=== PATIENT | male | born 1965 | race Caucasian/White ===

== ENCOUNTER 2020-12-29 09:26 | Outpatient (REF) | payer OTHER, SELFPAY ==
[2020-12-29 11:07] LABS: MANUAL DIFF FLAG NO
[2020-12-29 11:10] LABS: Basophils Percent Auto 0.8 % (0-2); Eosinophils Absolute Auto 0.1 X10*3/uL (0.0-0.4); Eosinophils Percent Auto 2.3 % (0-4); Hematocrit 41.1 % (42-52); Hemoglobin 14.7 g/dl (14.0-18.0); Imm Gran Abs Auto 0.02 X10*3/uL (0.00-0.03); Imm Gran Pct Auto 0.4 % (0.0-0.4); Lymphocytes Absolute Auto 1.5 X10*3/uL (1.2-4.9); Lymphocytes Percent Auto 32.1 % (20-40); Mean Corpuscular HGB Conc 35.8 g/dl (31.0-36.0); Mean Corpuscular Hemoglobin 32.7 pg (27.0-33.0); Mean Corpuscular Volume 91.3 fL (80-98); Mean Platelet Volume 9.8 fL (9.4-12.4); Monocytes Absolute Auto 0.4 X10*3/uL (0.1-1.2); Monocytes Percent Auto 8.2 % (2-11); Neutrophils Absolute Auto 2.7 X10*3/uL (2.0-8.3); Neutrophils Percent Auto 56.2 % (45-73); Platelet Count 274 X10*3/uL (160-400); Red Cell Distribution Width 11.6 % (11.0-16.0); White Blood Count 4.8 X10*3/uL (4.8-10.8)
[2020-12-29 11:19] LABS: Estimated Average Glucose 88 mg/dL; Hemoglobin A1c % 4.7 %
[2020-12-29 12:07] LABS: Alanine Aminotransferase 27 U/L (0-40); Albumin Level 4.3 g/dL (3.5-5.0); Alkaline Phosphatase 58 U/L (39-117); Anion Gap 13 (12-20); Aspartate Amino Transferase 22 U/L (5-37); Bilirubin Total 0.8 mg/dL (0.0-1.0); Blood Urea Nitrogen 14 mg/dL (9-16); Calcium 9.6 mg/dL (8.4-10.2); Carbon Dioxide 24 mmol/L (22-29); Chloride 108 mmol/L (96-108); Cholesterol 190 mg/dL; Estimated Glomerular Filt Rate > 60; Glucose Fasting 101 mg/dL (60-99); HDL Cholesterol 51 mg/dL; LDL Cholesterol Calculated 122 mg/dl; Potassium 4.3 mmol/L (3.3-5.1); Sodium 141 mmol/L (135-145); Triglycerides 86 mg/dL
== END 2020-12-29 09:27 | disposition home or self-care (01) ==
LOC: HO.MANLDS 09:26
PROVIDERS: PCP Physician Assistant; Visit Provider Physician Assistant
DX: Z00.00 Encounter for general adult medical examination without abnormal findings (principal)
CPT/HCPCS: 36415; 80053; 80061; 83036; 85025

== ENCOUNTER 2022-01-04 09:39 | Outpatient (REF) | payer OTHER, SELFPAY ==
[2022-01-04 11:17] LABS: MANUAL DIFF FLAG NO
[2022-01-04 11:40] LABS: Basophils Absolute Auto 0.1 X10*3/uL (0.0-0.2); Basophils Percent Auto 0.9 % (0-2); Eosinophils Absolute Auto 0.1 X10*3/uL (0.0-0.4); Eosinophils Percent Auto 1.8 % (0-4); Hematocrit 43.7 % (42.0-52.0); Hemoglobin 15.5 g/dl (14.0-18.0); Imm Gran Abs Auto 0.03 X10*3/uL (0.00-0.03); Imm Gran Pct Auto 0.5 % (0.0-0.4); Lymphocytes Percent Auto 34.3 % (20-40); Mean Corpuscular HGB Conc 35.5 g/dl (31.0-36.0); Mean Corpuscular Hemoglobin 32.8 pg (27.0-33.0); Mean Corpuscular Volume 92.4 fL (80.0-98.0); Mean Platelet Volume 9.9 fL (9.4-12.4); Monocytes Absolute Auto 0.5 X10*3/uL (0.1-1.2); Monocytes Percent Auto 9.1 % (2-11); Neutrophils Absolute Auto 3.1 x10*3/uL (2.0-8.3); Neutrophils Percent Auto 53.4 % (45-73); Platelet Count 289 X10*3/uL (160-400); Red Blood Count 4.73 X10*6/uL (4.60-5.80); Red Cell Distribution Width 12.1 % (11.0-16.0); White Blood Count 5.7 X10*3/uL (4.8-10.8)
[2022-01-04 11:56] LABS: Alanine Aminotransferase 28 U/L (0-40); Albumin Level 4.6 g/dL (3.5-5.0); Alkaline Phosphatase 59 U/L (39-117); Anion Gap 16 (12-20); Aspartate Amino Transferase 22 U/L (5-37); Bilirubin Total 0.9 mg/dL (0.0-1.0); Blood Urea Nitrogen 15 mg/dL (9-16); Carbon Dioxide 28 mmol/L (22-29); Chloride 107 mmol/L (96-108); Cholesterol 214 mg/dL; Estimated Glomerular Filt Rate > 60; Glucose Random 113 mg/dL (60-115); HDL Cholesterol 60 mg/dL; LDL Cholesterol Calculated 140 mg/dl; Potassium 5.6 mmol/L (3.3-5.1); Sodium 145 mmol/L (135-145); Total Protein 7.5 g/dL (6.5-8.0); Triglycerides 71 mg/dL
[2022-01-04 12:23] LABS: Estimated Average Glucose 97 mg/dL
== END 2022-01-04 09:40 | disposition home or self-care (01) ==
LOC: HO.MANLDS 09:39
PROVIDERS: Visit Provider Physician Assistant
DX: Z00.00 Encounter for general adult medical examination without abnormal findings (principal)
CPT/HCPCS: 36415; 80053; 80061; 83036; 85025

== ENCOUNTER 2022-01-28 15:59 | Outpatient (REF) | payer OTHER, SELFPAY | END 2022-01-28 16:00 | disposition home or self-care (01) | LOC: HO.HOSX 15:59 | PROVIDERS: Visit Provider Physician Assistant | DX: Z13.89 Encounter for screening for other disorder (principal) ==

== ENCOUNTER 2022-01-29 | Outpatient (REF) | payer OTHER, SELFPAY ==
--- NOTE | ~2022-01-29 | XR_ITS ---
EXAMINATION: XR ANKLE, RIGHT CLINICAL INFORMATION: Right ankle pain COMPARISON: None TECHNIQUE: AP, lateral, and mortise views of the right ankle. FINDINGS: Moderate talocrural arthrosis. There is widening of the lateral tibiotalar joint space suggesting chronic lateral ligamentous insufficiency. No acute osseous abnormality. XR/XR ankle RT min 3V IMPRESSION: Moderate talocrural arthrosis. Relative widening of the lateral tibiotalar joint space suggests chronic lateral ligamentous insufficiency. No acute abnormality.
== END 2022-01-29 00:01 | disposition home or self-care (01) ==
LOC: HO.HOSX
PROVIDERS: Visit Provider Physician Assistant
DX: M25.571 Pain in right ankle and joints of right foot (principal)
CPT/HCPCS: 73610

== ENCOUNTER 2023-01-05 09:36 | Outpatient (REF) | payer OTHER, SELFPAY ==
[2023-01-05 13:26] LABS: MANUAL DIFF FLAG NO
[2023-01-05 13:42] LABS: Basophils Percent Auto 0.8 % (0-2); Eosinophils Absolute Auto 0.1 X10*3/uL (0.0-0.4); Eosinophils Percent Auto 2.3 % (0-4); Hematocrit 42.5 % (42.0-52.0); Hemoglobin 14.9 g/dl (14.0-18.0); Imm Gran Abs Auto 0.03 X10*3/uL (0.00-0.03); Imm Gran Pct Auto 0.6 % (0.0-0.4); Lymphocytes Absolute Auto 2.2 X10*3/uL (1.2-4.9); Lymphocytes Percent Auto 42.6 % (20-40); Mean Corpuscular HGB Conc 35.1 g/dl (31.0-36.0); Mean Corpuscular Hemoglobin 31.9 pg (27.0-33.0); Monocytes Absolute Auto 0.5 X10*3/uL (0.1-1.2); Monocytes Percent Auto 10.1 % (2-11); Neutrophils Absolute Auto 2.3 x10*3/uL (2.0-8.3); Neutrophils Percent Auto 43.6 % (45-73); Platelet Count 260 X10*3/uL (160-400); Red Blood Count 4.67 X10*6/uL (4.60-5.80); Red Cell Distribution Width 12.3 % (11.0-16.0); White Blood Count 5.2 X10*3/uL (4.8-10.8)
[2023-01-05 13:45] LABS: Estimated Average Glucose 97 mg/dL
[2023-01-05 14:14] LABS: Alanine Aminotransferase 26 U/L (0-40); Albumin Level 4.2 g/dL (3.5-5.0); Alkaline Phosphatase 54 U/L (39-117); Anion Gap 10 (12-20); Aspartate Amino Transferase 22 U/L (5-37); Bilirubin Total 0.6 mg/dL (0.0-1.0); Blood Urea Nitrogen 14 mg/dL (9-16); Carbon Dioxide 26 mmol/L (22-29); Chloride 109 mmol/L (96-108); Cholesterol 204 mg/dL (<200); Estimated Glomerular Filt Rate > 60; Glucose Random 97 mg/dL (60-115); HDL Cholesterol 49 mg/dL (>40); LDL Cholesterol Calculated 128 mg/dL (<100); Potassium 4.2 mmol/L (3.3-5.1); Sodium 141 mmol/L (135-145); Total Protein 7.1 g/dL (6.5-8.0); Triglycerides 136 mg/dL (<150)
[2023-01-05 15:14] LABS: Creatinine Urine 185.24 mg/dL; Microalbum/Creatinine Ratio Ur 3.7 ug/mg cr (<30)
== END 2023-01-05 09:37 | disposition home or self-care (01) ==
LOC: HO.MANLDS 09:36
PROVIDERS: Visit Provider Physician Assistant
DX: I10 Essential (primary) hypertension (principal); R73.01 Impaired fasting glucose
CPT/HCPCS: 36415; 80053; 80061; 82043; 83036; 85025

== ENCOUNTER 2023-10-13 09:56 | Outpatient (REF) | payer OTHER, SELFPAY ==
--- NOTE | ~2023-10-13 | XR_ITS ---
EXAMINATION: XR HIP, RIGHT CLINICAL INFORMATION: Pain in unspecified hip. COMPARISON: None available. TECHNIQUE: AP view of the pelvis and 2 views of the right hip. FINDINGS: Degenerative changes in the imaged lower lumbar spine. Pubic symphysis is maintained. Mild degenerative changes on AP view of the left hip with joint space narrowing and hypertrophic change. Right hip: [id number]-pb-[id number] diffuse narrowing of the right hip joint space. Multiple periarticular cystic lucencies with hypertrophic change at the right hip joint. XR/XR hip RT min 2V IMPRESSION: 1. Wyfjbjlc-il-eufkoj degenerative changes in the right hip. 2. Mild degenerative changes in the left hip.
== END 2023-10-13 09:57 | disposition home or self-care (01) ==
LOC: HO.HOSX 09:56
PROVIDERS: Visit Provider Physician Assistant
DX: M25.551 Pain in right hip (principal)
CPT/HCPCS: 73502

== ENCOUNTER 2023-10-13 11:57 | Outpatient (AMB) | payer OTHER, SELFPAY ==
--- NOTE | 2023-10-13 12:34 | MHC.OFFVIS ---
Intake Visit Reasons: OV - Right Hip Pain Intake Note: [place] is a 58 year old male who presents today for a evaluation of his right hip pain. The patient reports consistent pain. He reports increased pain when walking on uneven ground occurs. Allergies No Known Allergies Allergy (Verified 10/13/23 12:35) Medication List - Last Reconciled 10/13/23 by Kathy Obrien RN albuterol sulfate 90 mcg/actuation 0 mcg inhalation fluticasone propion-salmeterol 100-50 mcg/dose (Advair Diskus) 1 inh inhalation BID hydrochlorothiazide 25 mg PO DAILY lisinopril 40 mg PO DAILY sertraline 25 mg PO DAILY HPI HPI OV - Right Hip Pain: Details: 58-year-old male who presents in the office today for an evaluation of right hip pain. Patient was referred to the office by Internal Medicine. While in the office today the patient reports constant pain in the right hip. He states the pain increases when ambulating on uneven ground. He also reports increased pain and aggravation with prolonged standing and prolonged ambulating. 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 No ecchymosis, erythema, or edema. Mild groin pain with internal and external rotation. Full hip ROM in all planes. No tenderness to palpation over the greater trochanteric bursa. 5/5 strength with resisted hip flexion, knee extension, abduction, and abduction. Able to perform straight leg raise. NVI. Assessment & Plan Assessment & Plan (1) Osteoarthritis of right hip: Code(s): M16.11 - Unilateral primary osteoarthritis, right hip Category: Medical Plan Mr. Vieira is a 58-year-old male who presents in the office today for an evaluation of right hip pain. Patient was referred to the office by Internal Medicine. While in the office today the patient reports constant pain in the right hip. He states the pain increases when ambulating on uneven ground. He also reports increased pain and aggravation with prolonged standing and prolonged ambulating. We discussed the role of conservative versus surgical intervention. He would like to consider a right total hip arthroplasty at this time. In the meantime, we are going to schedule an intra-articular injection at the hospital to be done under ultrasound guidance to see if this offers him any relief and allow him to get through the summer without activity modification. Should the patient decide to move forward with surgical intervention of a right total hip arthroplasty we discussed him meeting with Dr. Spencer and the nurse navigator for further information. My business card was supplied to the patient in the office today. Follow-up will be PRN, or sooner if needed. X-rays of the right hip which were obtained while in the office today and were reviewed by me, Tasha Spencer PA-C, revealed right hip osteoarthritis and subchondral cysts are noted. X-rays of the right hip, obtained on 09/16/2023, revealed: Right hip osteoarthritis. Orders: Orders FL arthrogram hip RT Today M16.11 - Unilateral primary osteoarthritis, right hip Patient Instructions: Scribed by Irene Alonso pesticide use medical coordinator, for Tasha Spencer PA-C on 10/13/2023 at 12:41 pm, EST. Coding Level of Care Code New Pt Level 4 (39885) Diagnoses Osteoarthritis of right hip M16.11
== END 2023-10-13 13:02 | disposition home or self-care (01) ==
PROVIDERS: PCP Physician Assistant; Visit Provider Physician Assistant
DX: M16.11 Unilateral primary osteoarthritis, right hip (principal)
CPT/HCPCS: 99214

== ENCOUNTER 2023-10-31 12:56 | Outpatient (REF) | payer OTHER, SELFPAY ==
--- NOTE | ~2023-10-31 | FL_ITS ---
FLUOROSCOPIC RIGHT HIP STEROID INJECTION Indications: Right hip pain. Orthopedic surgery requests intra-articular hip steroid injection Procedure: Risks and benefits and possible complications were discussed with the patient and the consent form was signed. The patient was placed hip on the fluoroscopy table. The right hip was prepped and draped in normal sterile fashion. 1% buffered lidocaine was used for anesthesia. A 22-gauge spinal needle was used to access the right hip joint. Intra-articular position of the needle within the hip joint was verified using 3 cc of Omnipaque 300. A total of 5 mL of 1% lidocaine, and the milligrams Depo-Medrol was then injected into the hip joint. The needle was then removed and a Band-Aid was applied to the injection site. The patient tolerated the procedure well. There were no immediate complications. Solitary image demonstrates moderate osteoarthritis of the right hip joint with [id number] joint space narrowing superiorly, subchondral sclerosis and cystic changes of the femoral head and superolateral acetabulum. There is intra-articular contrast. Needle is in place at the head neck junction. FL/FL arthrogram hip RT IMPRESSION: Successful fluoroscopic right hip intra-articular steroid injection The procedure was performed by Kvng Carrillo PA-C, and directly supervised by Dr. Mcgraw.
== END 2023-10-31 12:57 | disposition home or self-care (01) ==
LOC: HO.XRAY 12:56
PROVIDERS: PCP Internal Medicine; Visit Provider Physician Assistant
DX: M16.11 Unilateral primary osteoarthritis, right hip (principal)
CPT/HCPCS: 27093; 73525

== ENCOUNTER → 2023-10-31 12:58 | Outpatient (BNV) | payer OTHER, SELFPAY | PROVIDERS: PCP Internal Medicine; Visit Provider Physician Assistant Surgical | DX: M16.11 Unilateral primary osteoarthritis, right hip (principal) | CPT/HCPCS: 20610; 77002 ==

== ENCOUNTER 2024-02-03 11:33 | Outpatient (AMB) | payer OTHER, SELFPAY ==
--- NOTE | 2024-02-03 11:36 | MHC.OFFVIS ---
Intake Visit Reasons: OV - discuss right hip replacement Intake Note: [place] is a 58 year old male who presents today for a follow up of his right hip to discuss possible Right Hip Replacement. Allergies No Known Allergies Allergy (Verified 10/13/23 12:35) HPI HPI OV - discuss right hip replacement: Details: [place] is a 58 year old male who presents today for a follow up of his right hip to discuss possible Right Hip Replacement. He is active. He plays golf but uses a cart. He notes some stiffness in his right hip and occasional moderate pain. He also has ipsilateral ankle arthritis which she states causes him more pain than his hip. He had an injection over the greater trochanter which was minimally and briefly helpful. 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 Mild Trendelenburg gait. Results Reviewed Results Reviewed: I personally reviewed relevant radiographs. There is moderate osteoarthritis of the right hip Assessment & Plan Assessment & Plan (1) Osteoarthritis of right hip: Code(s): M16.11 - Unilateral primary osteoarthritis, right hip Category: Medical Plan: Moderate right hip osteoarthritis in a active 50-year-old gentleman. He has ipsilateral ankle arthritis which does not help. I am not sure that the quality of his life is severely diminished and I had a long discussion with him regarding treatment options. My recommendation at this point is staying active and strengthening his core musculature and avoiding hip exacerbating activities. (2) Osteoarthritis of ankle, right: Code(s): M19.071 - Primary osteoarthritis, right ankle and foot Category: Medical Plan: Discussed fusion and arthroplasty as surgical options for his ankle. I think he should continue activity as tolerated and can see me again at any time. Coding Level of Care Code Est Pt Level 3 (17520) Complex EM visit Add On G2211 Diagnoses Osteoarthritis of right hip M16.11 Osteoarthritis of ankle, right M19.071
== END 2024-02-03 11:58 | disposition home or self-care (01) ==
PROVIDERS: PCP Internal Medicine; Visit Provider Orthopaedic Surgery
DX: M16.11 Unilateral primary osteoarthritis, right hip (principal); M19.071 Primary osteoarthritis, right ankle and foot
CPT/HCPCS: 99213

== ENCOUNTER → 2024-02-03 11:33 | Outpatient (BNVA) | payer OTHER, SELFPAY | PROVIDERS: PCP Internal Medicine; Visit Provider Orthopaedic Surgery ==

== ENCOUNTER 2024-07-06 07:20 | Outpatient (REF) | payer OTHER, SELFPAY ==
--- OUTSIDE RECORDS SUMMARY | 2024-07-06 07:23 | XMS_ITS | Data Portability ---
Author Organization 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 REVIEW OF PRIOR EXTERNAL NOTES/RESULTS, ORDERING OF TEST(S) CATEGORY 2. 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 REVIEW OF PRIOR EXTERNAL NOTES/RESULTS, ORDERING OF TEST(S) CATEGORY 2. ASSESSMENT REQUIRING INDEPENDENT HISTORIAN(S) INCLUDE WHO THE HISTORIAN IS AND RELATION TO PT AND WHY PT IS UNABLE TO GIVE COMPLETE HISTORY ELEMENT 3: RISK (LOW) RISK OF COMPLICATIONS AND/OR MORBIDITY OR MORTALITY OF PATIENT MANAGEMENT PROVIDER MUST THOROUGHLY DOCUMENT ALL OF THE ELEMENTS COVERED Not available 06/29/2024 13:45:49 Plan of Treatment Reminders Order Date Submit Date Provider Last Modified By Organization Details Last Modified Time Details Appointments ANNUAL EXAM 2025 11:00A M DR HAIR Not available Not available Not available Lab CMP, serum or plasma 2024 025 [facility], [address] [place] [address], [id number], 06/12/2024 14:34:34 CBC 2024 025 [facility], [address] [place] [address], [address], 06/12/2024 14:34:35 PSA, serum or plasma 2024 025 [facility], [address] [place] [address], [address], 06/12/2024 14:34:34 lipid panel, blood 2024 025 [facility], [address] [place] [address], [address], 06/12/2024 14:34:35 HbA1c (hemoglob in A1c), blood 2022 023 [facility], [address] [place] [address], [address], 01/06/2023 11:50:03 microalbu min/creat inine, mass ratio, urine 2022 023 [facility], [address] [place] [address], [address], 01/05/2023 09:15:29 CMP, serum or plasma 2022 023 [facility], [address] [place] [address], [address], 01/06/2023 11:50:03 lipid panel, blood 2022 023 [facility], [address] [place] [address], [address], 01/06/2023 11:50:03 CBC w/ auto diff 2022 023 [facility], [address] [place] [address], [address], 01/06/2023 11:50:04 CMP, serum or plasma 2021 022 [facility], [address] [place] [address], [address], 01/05/2022 11:44:49 lipid panel, blood 2021 022 [facility], [address] [place] [address], [address], 01/05/2022 11:44:49 CBC w/ auto diff 2021 022 [facility], [address] [place] [address], [address], 01/05/2022 11:44:49 PSA, serum or plasma 2021 022 [facility], [address] [place] [address], [address], 01/04/2022 09:15:21 HbA1c (hemoglob in A1c), blood 2021 022 [facility], [address] [place] [address], [address], 01/05/2022 11:44:49 Referral orthopedi c surgeon referral 2021 022 [facility], [address] [place] [address] [place], [address], 01/06/2022 08:28:26 gastroent erologist referral 2021 022 [email or web address] 10 Bee Erickson MD, [address], [place], [address], 01/05/2022 08:16:24 Procedures None recorded. Surgeries None recorded. Imaging XR, hip, unilatera l, 2 or 3 view 2022 023 [facility], [address] [facility], [place], [address], 01/19/2023 08:20:44 Medication Orders azithromy wilfredo 250 mg tablet 2024 025 [facility][id number], [id number] [facility] , [place], [address], 06/29/2024 13:47:53 Patient TargetsNo targets recorded. 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 [address] [facility] [address], [place], [address], 01/01/2023 08:29:06 06/12/19 25 06/12/2024 pulse oxime try* Result 98% RA Not Available [facility] [address] [facility] [address], [place], [address], 06/11/2024 11:53:19 09/16/19 24 09/16/2023 XR, hip, unila teral , 2 or 3 view No observ ation record ed. [email or web address] [facility] [address] [facility] [address], [place], [address], 09/20/2023 08:49:27 11/01/19 24 11/01/2023 injec tion for hip arthr ograp hy (PROC ) No observ ation record ed. [email or web address] (Medical Records) [address] [place] [address], [address], 11/02/2023 11:26:44 Result Notes None recorded. Problems Name Problem SNOMED Code Status Onset Date Resolution Date Notes Provider Name and Address Organization Details Recorded Time Impaired fasting glycemia 792601733 Active 2019 JUAN C Robins [address] [place], [address], [facility] 0 09:16:32 Pain of right ankle joint 70411428729 545424 Active 2021 SENDY LEHMAN [address] [place] [address], [address], [facility] 2 09:07:03 Pain in right hip joint 08786199072 9102 Active 2022 SENDY LEHMAN [address] [place] [address], [address], [facility] 3 09:10:48 Shoulder pain 97673141 Active 2023 SENDY LEHMAN [address] [place] [address], [address], [facility] 4 10:48:55 Lateral epicondy litis of right humerus 68296122708 9107 Active 2023 Bautista A. Bigda, [address], [address], [facility] 4 14:27:52 Pneumoni tis 655345843 Active 2024 Bautista MarielleYessenia Hair, DO [address] [place] [address], [address], [facility] 5 13:46:05 [facility] hyperten rajiv 84667301 Active [facility] 15:48:49 Asthma 246108916 Active 2017 [facility] 8 15:48:57 Impaired fasting glycemia 725102725 Completed 201706/16/2018 JUAN C Archer [address] [place], [address], [facility] 0 09:16:32 History of depressi on 029545632 Active 2017 Nicoleroge Jimenez [facility] 8 15:49:10 Anxiety 21319468 [facility] 8 15:49:16 Spermato basim 68148338 Active [facility] 8 15:49:24 Problem Notes None recorded. Procedures Surgical History Date Name Laterality Status Provider Name and Address Organization Details Recorded Time 024 Corticosteroid Injection completed Bautista Hair, [address] [place] [address], [address], [facility] 05/31/2023 14:26:27 021 extraction of wisdom tooth completed SENDY LEHMAN [address] [place] [address], [phone], [facility] 12/29/2020 09:06:37 Imaging Results Imaging Date Name Status LastModified by Organization Details LastModified Time 09/16/2023 XR, hip, unilateral, 2 or 3 view completed [place] [address] [facility] [address], [place], [address], 09/20/2023 08:49:27 11/01/2023 injection for hip arthrography (PROC) completed [address] (Medical Records) [address] [facility], [place], [address], 11/02/2023 11:26:44 Procedure Notes None recorded. Medical Equipment None Reported. Allergies No known drug allergies Medications Name Sig Start Date Stop Date Status Note LastModified by Organization Details LastModified Time celecoxib 200 mg capsule TAKE 2 CAPSULES EVERY DAY BY ORAL ROUTE WITH MEAL(S) FOR 30 DAYS, FOR RIGHT SHOULDER PAIN. 06/12 completed Not Available Not Available Not Available amoxicillin 500 mg capsule TAKE 1 CAPSULE BY MOUTH THREE TIMES A DAY 12/29 completed Not Available Not Available Not Available fluticasone 250 mcg-salmete rol 50 mcg/dose blistr powdr for inhalation USE 1 INHALATIO N BY MOUTH TWICE DAILY active Not Available Not Available No t Available azithromyci n 250 mg tablet TAKE 2 TABLETS (500 MG) BY ORAL ROUTE ONCE DAILY FOR 1 DAY THEN 1 TABLET (250 MG) BY ORAL ROUTE ONCE DAILY FOR 4 DAYS 2024 active Not Available Not Available Not Avai lable hydrocodone 5 mg-acetamin ophen 325 mg tablet TAKE 1 TABLET BY MOUTH EVERY 6 HOURS NEEDED 01/04 completed Not Available Not Available Not Available sertraline 25 mg tablet TAKE 1 TABLET BY MOUTH DAILY active Not Available Not Available No t Available hydrochloro thiazide 25 mg tablet TAKE 1 TABLET BY MOUTH ONCE DAILY active Not Available Not Available No t Available albuterol sulfate HFA 90 mcg/actuati on aerosol inhaler USE 2 INHALATIO NS BY MOUTH EVERY 4 HOURS 2021 active Not Available Not Available Not Avai lable lisinopril 40 mg tablet TAKE 1 TABLET BY MOUTH DAILY active Not Available Not Available No t Available fluticasone propionate 50 mcg/actuati on nasal spray,suspe nsion 06/12 completed Not Available Not Available Not Available sertraline 50 mg tablet TAKE 1 TABLET DAILY 02/03 completed Not Available Not Available Not Available amoxicillin 875 mg-potassiu m clavulanate 125 mg tablet 12/16 completed Not Available Not Available Not Available Boostrix Tdap 2.5 Lf unit-8 mcg-5 Lf/0.5 mL intramuscul ar suspension 12/29 completed Not Available Not Available Not Available ProAir HFA 2 puffs every 4 hours prn 12/22 completed Not Available Not Available Not Available GaviLyte-G 236 gram-22.74 gram-6.74 gram-5.86 gram oral solution TAKE 4,000 ML BY MOUTH ONCE FOR 1 DOSE DIRECTED BY YOUR DOCTOR 06/12 completed Not Available Not Available Not Available Flucelvax Quad (PF) 60 mcg (15 mcg x 4)/0.5 mL IM syringe 06/16 completed Not Available Not Available Not Available Shingrix (PF) 50 mcg/0.5 mL intramuscul ar suspension, kit PHARMACY ADMINISTE RED 12/29 completed Not Available Not Available Not Available Afluria Qd 2018- (36 mos up)(PF)60 mcg (15 mcg x4)/0.5 mL IM syringe 12/29 completed Not Available Not Available Not Available Afluria Qd 2019- (36 mos up)(PF)60 mcg (15 mcg x4)/0.5 mL IM syringe TO BE ADMINISTE RED BY PHARMACIS T FOR IMMUNIZAT ION 12/29 completed Not Available Not Available Not Available Vitals Date Recorded Body height Body mass index (BMI) Body weight Oxygen saturation Oxygen saturation in Arterial blood by Pulse oximetry Heart rate Systolic blood pressure Diastolic blood pressure Provider Name and Address Organization Details Last Updated DateTime 2 169.55 cm 32.4 kg/m2 78788.8 7 g 97 % 97 % 83 /min 130 mm[Hg] 84 mm[Hg] Yohana Pond [facility] 2 08:59:18 Date Recorded Body height Body mass index (BMI) Body weight Heart rate Oxygen saturation Oxygen saturation in Arterial blood by Pulse oximetry Systolic blood pressure Diastolic blood pressure Provider Name and Address Organization Details Last Updated DateTime 3 167.64 cm 34.2 kg/m2 25327.5 8 g 79 /min 97 % 97 % 140 mm[Hg] 80 mm[Hg] Debra Ordonezhan [facility] 3 09:04:19 Date Recorded Body height Body mass index (BMI) Body weight Heart rate Oxygen saturation Oxygen saturation in Arterial blood by Pulse oximetry Systolic blood pressure Diastolic blood pressure Provider Name and Address Organization Details Last Updated DateTime 5 170.18 cm 33.8 kg/m2 70371.9 5 g 86 /min 98 % 98 % 138 mm[Hg] 86 mm[Hg] Geogigi Stewart [facility] 5 13:57:23 Social History Question Answer Notes LastModified by Organizat ion Details LastModified Time Tobacco Smoking Status Never Smoker Not Available [facility] 03/11/2020 03:36:23 What Was The Date Of Your Most Recent Tobacco Screening? 06/12/2024 [email or web address] Information not available 06/12/2024 Do You Or Have You Ever Used Any Other Forms Of Tobacco Or Nicotine? No [email or web address] Information not available 05/31/2023 Sex: Unknown Functional Status None recorded. Mental Status None recorded. Family History Relationship Description Onset Age of this Age Resolved Age Notes LastModified by Organization Details LastModified Time Mother Malignant tumor of kidney 69 hypoth yroid [email or web address] Not available 06/12/2024 13:51:44 Father Migraine colon cancer [email or web address] Not available 06/16/2018 11:43:15 Medical History Condition Response Coronary Artery Disease N Gout N Other N Kidney Stones N Blood Diseases N Blood Transfusion N Breast Cancer N COPD N Depression N Lung Disease N Defects or Inherited Disease N Anxiety Disorder N Muscle, Joint, or Bone Problems N Obesity N Vision or Eye Problems N Arthritis N Polyps N Infertility N Mental Disorder N Cancer N Varicosities N Stroke N Endometriosis N Bladder or Kidney Problems N High Cholesterol N Liver Disease N Headaches N Fibromyalgia N Kidney Disease N Allergies/Hayfever N Heart Problems N Hospitalizations N Thyroid Problems N GI Problems N Eating Disorder N Skin Problems N Anemia N MRSA exposure N Constipation N Mental Illness N Diabetes N Ovarian Cancer N Seizures/Epilepsy N Tuberculosis N Congestive Heart Failure (CHF) N Eczema N Abuse/Domestic Violence N Diverticulitis N Asthma N Reflux/GERD N Hepatitis N Heart Disease N Pulmonary Embolism N Hypertension N Chicken Pox N Autism Spectrum Disorder (ASD) N Osteoporosis N Immunizations Vaccine Type Date Status Note Provider Nam e and Address Organization Details Recorded Time COVID-19, mRNA, LNP-S, PF, 100 mcg/0.5mL dose or 50 mcg/0.25mL dose 1 completed Bee boswell, [facility] 05/31/2023 14:00:58 COVID-19, mRNA, LNP-S, PF, 100 mcg/0.5mL dose or 50 mcg/0.25mL dose 1 completed Bee boswell, [facility] 05/31/2023 14:00:58 Influenza, split virus, quadrivalent, preservative 0 completed Bee boswell, [facility] 05/31/2023 14:00:58 zoster recombinant 0 completed Bee boswell, [facility] 05/31/2023 14:00:58 COVID-19, mRNA, LNP-S, PF, 100 mcg/0.5mL dose or 50 mcg/0.25mL dose 1 completed Bee boswell, [facility] 05/31/2023 14:00:58 Influenza, split virus, quadrivalent, preservative 9 completed Bee boswell [facility] 05/31/2023 14:00:58 Tdap 9 completed Tameka Julienne GRAHAMROOPA [address] [place] [address], [address], [facility] 06/26/2019 12:38:56 Past Encounters Encounter ID Performer Location Encounter Start Date Encounter Closed Date Diagnosis/Indication Diagnosis SNOMED-CT Code Diagnosis ICD10 Code Diagnosis Note [id number] [facility] [address],[place] [address] 12/16/2017 10:42:49 12/16/2017 11:27:42 Adult health examination 009158993 Z00.01 just had prostate checked with urologist Active or passive immunization 438671656 Z23 Essential hypertension 25688036 I10 Asthma 450328066 J45.90 9 [id number] Isela Downing NP, S [facility] Internal Medicine [address] [place] [address],[place] [address] 06/16/2018 11:31:30 06/16/2018 12:07:15 Asthma 085939361 J45.909 Essential hypertension 52816865 I10 stable, reviewed labs History of depression 16 7693916 Z86.59 controlled [id number] [facility] Medicine [address] [facility],[place] [address] 12/22/2018 11:37:03 12/22/2018 12:09:50 History of depression 368417934 Z86.59 ok Asthma 100267518 J45.90 9 stable rare use of pro air Anxiety 97345535 F41.9 ok Essential hypertension 06515574 I10 stable Active or passive immunization 395115124 Z23 [id number] [facility] Medicine [address] [facility],[place] [address] 06/26/2019 11:15:38 06/26/2019 14:41:08 Adult health examination 568151078 Z00.00 no prostate issues no family h/o prostate cancer had seen urology in the past and only finding was a spermatoce le will check chart for urology report Active or passive immunization 914649462 Z23 Actinic keratosis 634357 007 L57.0 Asthma 788073068 J45.90 9 stable on daily wixela rare use of pro air Essential hypertension 07531335 I10 stable Impaired f asting glycemia 422088812 R73.01 reviewed labs discussed diet and exercise and weight loss Body mass index 30+ - obesity 115275604 Z68.35 as stated above [id number] SENDY LEHMAN Internal Medicine [address] [facility],[place] [address] 12/26/2019 11:39:08 12/26/2019 12:13:32 History of depression 264584683 Z86.59 stable Asthma 004952766 J45.90 9 stable on medication s Anxiety 37457068 F41.9 stable Essential hypertension 82544085 I10 BP is higher today was stressed at work will continue to monitor it Active or passive immunization 425287102 Z23 will get shingrix shot and flu shot at the pharmacy [id number] SENDY LE[address] [facility] Internal Medicine [address] [facility],[place] [address] 12/29/2020 08:45:31 12/29/2020 09:25:23 Active or passive immunization 772823149 Manoj will get shingrix shot and flu shot at the pharmacy Adult [facility] th examination 978772780 Z00.00 recheck BW Asthma 759342629 J45.90 9 stable on medication s Essential hypertension 34458434 I10 BP is higher today was stressed at worktends to be higher when he first gets to the office will continue to monitor it Anxiety 48083213 F41.1 stable on sertraline wants to taper offwill cut 50 mg and half and call for 25 mg and cut those in half [id number] SENDY LE[address] [facility] Internal Medicine [address] [facility], [place] [address] 01/04/2022 08:49:27 01/04/2022 09:23:37 Active or passive immunization 581459222 Manoj will get shingrix shot and flu shot at the pharmacy Adult [facility] examination 898781427 Z00.00 recheck BW Essential hypertension 27522793 I10 stable Pain of ri ght ankle joint 7497559892 7723433 M25.571 will fu with ortho referral Screening for malignant neoplasm of colon 725888840 Z12.11 will fu with screening [id number] SENDY LEHMAN [facility] Internal Medicine [address] [facility], [place] [address] 01/05/2023 08:57:18 01/05/2023 16:47:55 Active or passive immunization 182142551 Z23 will get shingrix shot and flu shot at the pharmacy Adult [facility] th examination 369283380 Z00.00 recheck BW Anxiety 00824493 F41.1 stable on sertraline wants to taper offwill cut 50 mg and half and call for 25 mg and cut those in half Essential hypertension 62958517 I10 stable Impaired f asting glycemia 324483727 R73.01 will set up with lab work Asthma 792957857 J45.20 stable on medication s Pain in ri ght hip joint 8386605707 05265 M25.551 will set up with XR hip [id number] Bautista Hair [facility] Internal Medicine [address] [facility] [address],[place] [address] 05/31/2023 13:58:12 05/31/2023 14:23:37 Shoulder pain 69981489 M25.511 has noted rotator tendinitis or labral arthritis cont celecoxib for 2 dayscort inj well lance Lateral ep icondylitis of right humerus 8535927036 16986 M77.11 conserv tx with band and nsaid [id number] Bautista Hair [facility] Internal Medicine [address] [facility] [address],[place] [address] 06/12/2024 13:50:34 06/12/2024 14:55:42 Active or passive immunization 270020174 Z23 utd Adult heal th examination 965780487 Z00.00 doing well no issues Essential hypertension 61471306 I10 stable Asthma 331114097 J45.20 no issues rare use of albut [id number] Bautista Hair [facility] Internal Medicine [address] [facility] [address],[place] [address] 06/29/2024 09:24:24 06/29/2024 14:11:47 Pneumonitis 492660410 J18.9 Health Concerns Section Related Observation LastModified by Organization Detai ls LastModified Time None Recorded Concern Status LastModified by Organization Details LastModified Time None Recorded Advance Directives Directive None Recorded Payers Encounter Date Sequence Insurance Name Policy Number Policy Benson Covered Member ID Benson Member ID Guarantor Name 01/04/2022 1 [facility] [id number] Modesto Vieira [id number] Modesto Vieira 01/05/2023 1 [facility] [id number] Modesto Vieira [id number] Modesto Vieira 05/31/2023 1 [facility] [id number] Modesto Vieira [id number] Modesto Vieira 06/12/2024 1 [facility] [id number] Modesto Vieira [id number] Modesto Vieira 06/29/2024 1 [facility] [id number] Modesto Vieira [id number] Modesto Vieira Notes Date Note Type Note Provider Name a nd Address Organization Details Recorded Time 2 text/html Annual WellnessReported bypatient.Diet and Nutrition:healthy diet; discussed vitamin and supplement use; discussed portion control; discussed maintaining calcium balance; discussed diet improvement Fracture Risk:no history of fractures; no recent explained fracture; no sudden unexplained fractures; no previous musculoskeletal injuries Physical Activity:exercises on a regular basis; recent increase in physical activity; good physical condition Additional Lifestyle Factors:no tobacco use; no alcohol intake; stopped drinking alcohol Depression Risk:never feels sad, empty, or tearful; no loss of interest in activities; no significant changes in weight; no sleep disturbances or insomnia; no agitation; no loss of energy; no feelings of worthlessness or guilt; no thoughts of suicide; no history of depression; no history of mood disorders Hearing:no loss of hearing Vision:no vision problems HTN: today in the office the patient BP is 130/84 L arm the patient is doing well on the BP medication with no side effects and no adjustment of their medications needed today at the appointment well-controlled on medication denies chest pain, sob, ankle swelling, orthopnea, palpitations right ankle has been bothering himreports started a year ago when he sprained it but hasn't been good since right hip has been bothering him as well, which has been for years SENDY LEHMAN [address] [place] [address], [address], [facility] 01/04/2022 09:20:25 3 text/html Annual WellnessReported bypatient.Diet and Nutrition:healthy diet; discussed vitamin and supplement use; discussed portion control; discussed maintaining calcium balance; discussed diet improvement Fracture Risk:no history of fractures; no recent explained fracture; no sudden unexplained fractures; no previous musculoskeletal injuries Physical Activity:exercises on a regular basis; recent increase in physical activity; good physical condition; discussed weightbearing activities; discussed exercise habits Additional Lifestyle Factors:no tobacco use Depression Risk:never feels sad, empty, or tearful; no loss of interest in activities; no significant changes in weight; no sleep disturbances or insomnia; no agitation; no loss of energy; no feelings of worthlessness or guilt; no thoughts of suicide; no history of depression; no history of mood disorders Hearing:no loss of hearing Vision:no vision problems HTN: today in the office the patient BP is 140/80 L arm the patient is doing well on the BP medication with no side effects and no adjustment of their medications needed today at the appointment well-controlled on medication denies chest pain, sob, ankle swelling, orthopnea, palpitations SENDY LEHMAN [address] [place], [address], [facility] 01/05/2023 09:32:59 4 text/html here for chk of his right shoulderrelates has gotten severe pain 3 weeks agoaching throbbing pain worse with moving upward Bautista Hair DO [address] [place] [address], [address], [facility] 05/31/2023 14:28:17 5 text/html Annual WellnessReported bypatient.Diet and Nutrition:healthy diet Fracture Risk:no history of fractures; no recent explained fracture; no sudden unexplained fractures; no previous musculoskeletal injuries Physical Activity:exercises on a regular basis; recent increase in physical activity; good physical condition Additional Lifestyle Factors:no tobacco use; no alcohol intake; stopped drinking alcohol Depression Risk:never feels sad, empty, or tearful; no loss of interest in activities; no significant changes in weight; no sleep disturbances or insomnia; no agitation; no loss of energy; no feelings of worthlessness or guilt; no thoughts of suicide; no history of depression; no history of mood disorders Hearing:no loss of hearing Vision:no vision problemsNotes:hip has been doing ok overall relates that the cor t inj was very Bautista PalomaresYessenia Hair DO [address] [place], [address], [facility] 06/12/2024 14:34:42 5 text/html patient is evaluated via tele/video assessment per patient consentduring current pandemic I think i might have come down with the Flu this week. I will call a little later but wanted to outline the issues i had this week.Tuesday sneezing started and at night coughing.? y coughing got worse, Breathing Out had many different noises. Headaches. All day/night. Fever of 100?Tuesday Coughing continued not as much but still alot, breathing Out still had many different noises. Headaches. Fever 101.7? Coughing continued, still noise breathing, Headaches got chills read bad around 5:00PM. Took Temp at 7 and it was 102.7?Tuesday this AM, temp was 100.?I took Dayquil and nightquil along with 600MG Tylenol and Ibuprofen at night I really could not cough up anything, just a little.? Bautista Hair, DO [address] [facility], [place], [address], [facility] 06/29/2024 13:48:08
--- OUTSIDE RECORDS SUMMARY | 2024-07-06 07:24 | XMS_ITS | Continuity of Care Document ---
Author Organization [facility], [facility] Address [address] [facility] [place] [address] [place] [address] Assessment No assessment recorded. Plan of Treatment Reminders Order Date Submit Date Provider Last Modified By Organization Details Last Modified Time Details Appointments ANNUAL EXAM 2025 11:00A M DR HAIR Not available Not available Not available Lab CMP, serum or plasma 2024 025 [facility], [address] [place] [address], [id number], 06/12/2024 14:34:34 CBC 2024 025 [facility], [address] [place] [address], [id number], 06/12/2024 14:34:35 PSA, serum or plasma 2024 025 [facility], [address] [place] [address], [id number], 06/12/2024 14:34:34 lipid panel, blood 2024 025 [facility], [address] [place] [address], [id number], 06/12/2024 14:34:35 Referral None recorded . Procedures None recorded . Surgeries None recorded . Imaging None recorded . Medication Orders None recorded . Patient TargetsNo targets recorded. Patient Instructions Encounter Date Encounter Id Patient Instructions Last Modified By Organization Details Last Modified Time 06/12/2024 [id number] pulse oximetry* Not available 06/12/2024 14:33:13 Reason for Referral None Reported. Results Created Date Observation Date Name Description Value Unit Range Abnormal Flag Note LastModifiedBy Organization Detail LastModifiedTime 06/12/1906/12/2024 pulse oxime try* Result 98% RA Not Available [facility] [address] [facility] [address], [place], [address], 06/11/2024 11:53:19 Result Notes None recorded. Problems Name Problem SNOMED Code Status Onset Date Resolution Date Notes Provider Name and Address Organization Details Recorded Time Impaired fasting glycemia 212791384 Active 2019 JUAN C Robins [address] [place], [address], [facility] 0 09:16:32 Pain of right ankle joint 80125277409 788725 Active 2021 SENDY LEHMAN [address] [place], [address], [facility] 2 09:07:03 Pain in right hip joint 99424901564 9102 Active 2022 SENDY LEHMAN [address] [place] [address], [address], [facility] 3 09:10:48 Shoulder pain 81456006 Active 2023 SENDY LEHMAN [address] [place], [address], [facility] 4 10:48:55 Lateral epicondy litis of right humerus 97237580259 9107 Active 2023 Bautista Hair DO [address] [place] [address], [address], [facility] 4 14:27:52 Pneumoni tis 378485799 Active 2024 Bautista Hair DO [address] [place] [address], [address], [facility] 5 13:46:05 [facility] hyperten rajiv 08070620 [facility] 8 15:48:49 Asthma 147249928 Active 2017 [facility] 8 15:48:57 Impaired fasting glycemia 895266056 Completed 201706/16/2018August JulienneGRAHAMROOPA [address] [place], [address], [facility] 0 09:16:32 History of depressi on 457371144 Active 2017 [facility] 8 15:49:10 Anxiety 81951357 Active 2017 [facility] 8 15:49:16 Spermato basim 10506219 Active 2017 [facility] 8 15:49:24 Problem Notes None recorded. Procedures Surgical History Date Name Laterality Status Provider Name and Address Organization Details Recorded Time 024 Corticosteroid Injection completed Bautista Hair DO [address] [place] [address], [address], [facility] 05/31/2023 14:26:27 021 extraction of wisdom tooth completed SENDY LEHMAN [address] [place] [address], [phone], [facility] 12/29/2020 09:06:37 Imaging Results None recorded. Procedure Notes None recorded. Medical Equipment None [...] Available Not Available Not Available Flucelvax Quad [id number] (PF) 60 mcg (15 mcg x 4)/0.5 mL IM syringe 06/16 completed Not Available Not Available Not Available Shingrix (PF) 50 mcg/0.5 mL intramuscul ar suspension, kit [facility] 12/29 completed Not Available Not Available Not Available Afluria Qd 2019-20 (36 mos up)(PF)60 mcg (15 mcg x4)/0.5 [...] Updated DateTime 5 170.18 cm 33.8 kg/m2 68950.9 5 g 86 /min 98 % 98 % 138 mm[Hg] 86 mm[Hg] Geo Osborne [facility] 13:57:23 Social History Question Answer Notes LastModified by Organizat ion Details LastModified Time Tobacco Smoking Status Never Smoker Not Available [facility] 03/11/2020 03:36:23 What Was The Date Of [...] available 06/12/2024 13:51:44 Father Migraine colon cancer eskawssam Not available 06/16/2018 11:43:15 Medical History Condition Response Coronary Artery Disease N Other N Gout N Blood Diseases N Kidney Stones N Breast Cancer N Blood Transfusion N Lung Disease N Depression N COPD N Defects or Inherited Disease N Anxiety Disorder N Muscle, Joint, or Bone Problems N Obesity N Vision or Eye Problems N Arthritis N Infertility N Polyps N Mental Disorder N Cancer N Stroke N Varicosities N Endometriosis N Bladder or Kidney Problems N High Cholesterol N Liver Disease N Fibromyalgia N Headaches N Kidney Disease N Allergies/Hayfever N Heart [...] or 50 mcg/0.25mL dose 1 completed Bee boswell [facility] 05/31/2023 14:00:58 COVID-19, mRNA, LNP-S, PF, 100 mcg/0.5mL dose or 50 mcg/0.25mL dose 1 completed Bee boswell [facility] 05/31/2023 14:00:58 Influenza, split virus, quadrivalent, preservative 0 completed Bee boswell [facility] 05/31/2023 14:00:58 zoster recombinant 0 completed Bee boswell [facility] 05/31/2023 14:00:58 COVID-19, mRNA, LNP-S, PF, 100 mcg/0.5mL dose or 50 mcg/0.25mL dose 1 completed Bee boswell [facility] 05/31/2023 14:00:58 Influenza, split virus, quadrivalent, preservative 9 completed Bee boswell [facility] 05/31/2023 14:00:58 Tdap 9 completed August JUAN C Robins [address] [place] [address], [address], [facility] 06/26/2019 12:38:56 Past Encounters Encounter ID Performer Location Encounter Start Date Encounter Closed Date Diagnosis/Indication Diagnosis SNOMED-CT Code Diagnosis ICD10 Code Diagnosis Note [id number] Bautista Hair DO [facility] [address] [facility],[place] [address] 06/12/2024 13:50:34 06/12/2024 14:55:42 Active or passive immunization 409489234 Z23 utd Adult heal th examination 783904932 Z00.00 doing well no issues Essential hypertension 97580780 I10 stable Asthma 946190242 J45.20 no issues rare use of albut Health Concerns Section Related Observation LastModified by Organization Detai ls LastModified Time None Recorded Concern Status LastModified by Organization Details LastModified Time None Recorded Payers Encounter Date Sequence Insurance Name Policy Number Policy Benson Covered Member ID Benson Member ID Guarantor Name 06/12/2024 1 [facility] [id number] Modesto Vieira [id number] Modesto Vieira Notes Date Note Type Note Provider Name a nd Address Organization Details Recorded Time 5 text/html Annual WellnessReported bypatient.Diet and Nutrition:healthy [...] the cor t inj was very Bautista Hair, DO [address] [place], [address], [facility] 06/12/2024 14:34:42
--- OUTSIDE RECORDS SUMMARY | 2024-07-06 07:24 | XMS_ITS | Continuity of Care Document ---
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 Referral None recorded. Procedures None recorded. Surgeries None recorded. Imaging None recorded. Medication Orders azithromy wilfredo 250 mg tablet 2024 025 [facility][id number], [address] [facility] [place], [address], 06/29/2024 13:47:53 Patient TargetsNo targets recorded. Patient InstructionsNo instructions recorded. Reason for Referral None Reported. Problems Name Problem SNOMED Code Status Onset Date Resolution Date Notes Provider Name and Address Organization Details Recorded Time Impaired fasting glycemia 417412616 Active 2019 GRAHAM RobinsROOPA [address] [place], [address], [facility] 0 09:16:32 Pain of right ankle joint 67785990039 474171 Active 2021 SENDY LEHMAN [address] [place], [address], [facility] 2 09:07:03 Pain in right hip joint 82280312936 9102 Active 2022 SENDY LEHMAN [address] [place], [address], [facility] 3 09:10:48 Shoulder pain 63183160 Active 2023 SENDY LEHMAN [address] [place] [address], [address], [facility] 4 10:48:55 Lateral epicondy litis of right humerus 93267324139 9107 Active 2023 Bautista Hair, [address] [place] [address], [address], [facility] 4 14:27:52 Pneumoni tis 026490872 Active 2024 Bautista Hair DO [address] [place] [address], [address], [facility] 5 13:46:05 Essentia l hyperten rajiv 87796963 Active 2017 Nicole boswell [facility] 8 15:48:49 Asthma 451815980 Active 2017 Nicole boswell [facility] 8 15:48:57 Impaired fasting glycemia 520150630 Completed 201706/16/2018August GRAHAM RobinsROOPA [address] [place], [address], [facility] 0 09:16:32 History of depressi on 473591301 Active 2017 [facility] 8 15:49:10 Anxiety 86088376 [facility] 2017 [facility] 8 15:49:16 Spermato basim 61079471 Active 2017 [facility] 8 15:49:24 Problem Notes None recorded. Procedures Surgical History Date Name Laterality Status Provider Name and Address Organization Details Recorded Time 024 Corticosteroid Injection completed Bautista Hair DO [address] [place], [address], [facility] 05/31/2023 14:26:27 021 extraction of wisdom tooth completed SENDY LEHMAN [address] [place], [address], [facility] 12/29/2020 09:06:37 Imaging Results None recorded. [...] Available Not Available Not Available Flucelvax Quad [id number] (PF) 60 mcg (15 mcg x 4)/0.5 [...] Not Available Not Available Not Available Vitals None Recorded Social History Question Answer Notes LastModified by [...] Artery Disease N Other N Gout N Kidney Stones N Blood Diseases N Breast Cancer N Blood Transfusion N [...] N Thyroid Problems N GI Problems N Skin Problems N Eating Disorder N Anemia N MRSA exposure N Constipation N Mental Illness N Ovarian Cancer N Diabetes N Seizures/Epilepsy N Tuberculosis N Congestive Heart Failure (CHF) N Eczema N Diverticulitis N Abuse/Domestic Violence N Asthma N Reflux/GERD N Hepatitis N Heart Disease N Pulmonary Embolism N Hypertension N Osteoporosis N Chicken Pox N Autism Spectrum Disorder (ASD) N Immunizations Vaccine Type Date Status Note Provider Nam e and Address Organization Details Recorded Time COVID-19, mRNA, LNP-S, PF, 100 mcg/0.5mL dose or 50 mcg/0.25mL dose 1 completed Bee boswell [facility] 05/31/2023 14:00:58 COVID-19, mRNA, LNP-S, PF, 100 mcg/0.5mL dose or 50 mcg/0.25mL dose 1 completed Bee boswell [facility] 05/31/2023 14:00:58 Influenza, split virus, quadrivalent, preservative 0 completed Bee boswell [facility] 05/31/2023 14:00:58 zoster recombinant 0 completed Bee boswell [facility] 05/31/2023 14:00:58 COVID-19, mRNA, LNP-S, PF, 100 mcg/0.5mL dose or 50 mcg/0.25mL dose 1 completed Bee boswell [facility] 05/31/2023 14:00:58 Influenza, split virus, quadrivalent, preservative 9 completed Bee boswell [facility] 05/31/2023 14:00:58 [facility]dap 9 [facility] [address] [place], [address], [facility] 06/26/2019 12:38:56 Past Encounters Encounter ID Performer Location Encounter Start Date Encounter Closed Date Diagnosis/Indication Diagnosis SNOMED-CT Code Diagnosis ICD10 Code Diagnosis Note [id number] [facility] [address] [facility],[place] [address] 06/12/2024 13:50:34 06/12/2024 14:55:42 Active or passive immunization 489083956 Z23 utd Adult [facility] th examination 094805220 Z00.00 doing well no issues Essential hypertension 55979785 I10 stable Asthma 177701398 J45.20 no issues rare use of albut [id number] [facility] [address] [facility] [address] 06/29/2024 09:24:24 06/29/2024 14:11:47 Pneumonitis 449668716 J18.9 Health Concerns Section Related Observation LastModified by Organization Detai ls LastModified Time None Recorded Concern Status LastModified by Organization Details LastModified Time None Recorded Payers Encounter Date Sequence Insurance Name Policy Number Policy Benson Covered Member ID Benson Member ID Guarantor Name 06/29/[address] [facility] [id number] Modesto Vieira [id number] Modesto Vieira Notes Date Note Type Note Provider Name a oh Address Organization Details Recorded Time 06/29/2024 text/html patient is evaluated via tele/video assessment per patient consentduring current pandemic I think i might have come down with the Flu this week. I will call a little later but wanted to outline the issues i had this week.Tuesday sneezing started and at night coughing.?Tue coughing got worse, Breathing Out had many different noises. Headaches. All day/night. Fever of 100?Tuesday Coughing continued not as much but still alot, breathing Out still had many different noises. Headaches. Fever 101.7?Thursda y Coughing continued, still noise breathing, Headaches got chills read bad around 5:00PM. Took Temp at 7 and it was 102.7?Tuesday this AM, temp was 100.?I took Dayquil and nightquil along with 600MG Tylenol and Ibuprofen at night I really could not cough up anything, just a little.? Bautista aHir, DO [address] [facility], [place], [address], [facility] 06/29/2024 13:48:08
[2024-07-06 10:24] LABS: MANUAL DIFF FLAG NO
[2024-07-06 10:31] LABS: Basophils Percent Auto 0.7 % (0-2); Eosinophils Absolute Auto 0.1 X10*3/uL (0.0-0.4); Eosinophils Percent Auto 2.3 % (0-4); Hematocrit 41.4 % (42.0-52.0); Hemoglobin 14.3 g/dl (14.0-18.0); Imm Gran Abs Auto 0.06 X10*3/uL (0.00-0.03); Imm Gran Pct Auto 1.1 % (0.0-0.4); Lymphocytes Absolute Auto 2.4 X10*3/uL (1.2-4.9); Lymphocytes Percent Auto 42.1 % (20-40); Mean Corpuscular HGB Conc 34.5 g/dl (31.0-36.0); Mean Corpuscular Hemoglobin 31.6 pg (27.0-33.0); Mean Corpuscular Volume 91.4 fL (80.0-98.0); Mean Platelet Volume 9.5 fL (9.4-12.4); Monocytes Absolute Auto 0.4 X10*3/uL (0.1-1.2); Monocytes Percent Auto 7.7 % (2-11); Neutrophils Absolute Auto 2.6 x10*3/uL (2.0-8.3); Neutrophils Percent Auto 46.1 % (45-73); Platelet Count 396 X10*3/uL (160-400); Red Blood Count 4.53 X10*6/uL (4.60-5.80); Red Cell Distribution Width 11.6 % (11.0-16.0); White Blood Count 5.7 X10*3/uL (4.8-10.8)
[2024-07-06 10:49] LABS: Alanine Aminotransferase 77 U/L (0-40); Albumin Level 4.1 g/dL (3.5-5.0); Alkaline Phosphatase 68 U/L (39-117); Anion Gap 12 (12-20); Aspartate Amino Transferase 41 U/L (5-37); Bilirubin Total 0.4 mg/dL (0.0-1.0); Blood Urea Nitrogen 14 mg/dL (9-16); Calcium 9.8 mg/dL (8.4-10.2); Carbon Dioxide 24 mmol/L (22-29); Chloride 109 mmol/L (96-108); Cholesterol 199 mg/dL (<200); Estimated Glomerular Filt Rate > 60; Glucose Random 101 mg/dL (60-115); HDL Cholesterol 34 mg/dL (>40); LDL Cholesterol Calculated 136 mg/dL (<100); Potassium 4.4 mmol/L (3.3-5.1); Sodium 141 mmol/L (135-145); Total Protein 7.7 g/dL (6.5-8.0); Triglycerides 147 mg/dL (<150)
[2024-07-06 11:01] LABS: Prostate Specific Antigen 0.81 ng/mL (<0.05-4.0)
== END 2024-07-06 07:21 | disposition home or self-care (01) ==
LOC: HO.HMGCLDS 07:20
PROVIDERS: PCP Internal Medicine; Visit Provider Internal Medicine
DX: I10 Essential (primary) hypertension (principal); Z12.5 Encounter for screening for malignant neoplasm of prostate
CPT/HCPCS: 36415; 80053; 80061; 84153; 85025

== ENCOUNTER 2024-09-17 06:52 | Outpatient (REF) | payer OTHER, SELFPAY ==
--- OUTSIDE RECORDS SUMMARY | 2024-09-17 06:57 | XMS_ITS | Data Portability ---
Author Organization [facility], Home Service Address [address] [place] [address] Assessment Encounter Date Assessment Date Assessment LastModified by Organization Details LastModified Time 05/31/2023 05/31/2023 [address] [place] [address] (COOK PICKLED MEAT) : CIRILO LOW MUST MEET 2 OF [...] COVERED Not available 05/31/2023 14:26:42 06/29/2024 06/29/2024 [address] [place] [address] (COOK PICKLED MEAT) : CIRILO LOW MUST MEET 2 OF [...] Lab CMP, serum or plasma 2024 025 [facility], [address] [place] [address], [id number], 07/09/2024 12:04:26 CBC 2024 025 [facility], [address] [place] [address], [id number], 06/12/2024 14:34:35 PSA, serum or plasma 2024 025 [facility], [address] [place] [address], [id number], 06/12/2024 14:34:34 lipid panel, blood 2024 025 [facility], [address] [place] [address], [id number], 07/09/2024 12:04:26 HbA1c (hemoglob in A1c), blood 2022 023 [facility], [address] [place] [address], [address], 01/06/2023 11:50:03 microalbu min/creat inine, mass ratio, urine 2022 023 [facility], [address] [place] [address], [address], 01/05/2023 09:15:29 CMP, serum or plasma 2022 023 [facility], [address] [place] [address], [id number], 01/06/2023 11:50:03 lipid panel, blood 2022 023 [facility], [address] [place] [address], 15856, 01/06/2023 11:50:03 CBC w/ auto diff 2022 023 [facility], [address] [place] [address], [id number], 01/06/2023 11:50:04 CMP, serum or plasma 2021 022 [facility], [address] [place] [address], [address], 01/05/2022 11:44:49 lipid panel, blood 2021 022 [facility], [address] [place] [address], [address], 01/05/2022 11:44:49 CBC w/ auto diff 2021 022 [facility], [address] [place] [address], 994[address], 01/05/2022 11:44:49 PSA, serum or plasma 2021 022 [facility], [address] [place] [address], 07[address], 01/04/2022 09:15:21 HbA1c (hemoglob in A1c), blood 2021 022 [facility], [address] [place] [address], [address], 01/05/2022 11:44:49 Referral orthopedi c surgeon referral 2021 022 [email or web address], [address] [place] [address], [place], [address], 01/06/2022 08:28:26 gastroent erologist referral 2021 022 [email or web address] 10 Bee Erickson MD, [address], [place], [address], 01/05/2022 08:16:24 Procedures None recorded. Surgeries None recorded. Imaging XR, hip, unilatera l, 2 or 3 view 2022 023 [facility], [address] [facility], [place], [address], 01/19/2023 08:20:44 Medication Orders azithromy wilfredo 250 mg tablet 2024 025 [facility][id number], [address] [facility] , [place], [address], 06/29/2024 13:47:53 Patient TargetsNo targets recorded. Patient Instructions Encounter Date Encounter Id Patient Instructions Last Modified By Organization Details Last Modified Time 01/05/2023 [id number] pulse oximetry* [email or web address] Not available 01/05/2023 09:13:17 05/31/2023 [id number] shoulder pain: care instructions Not available 05/31/2023 14:27:23 06/12/2024 [id number] pulse oximetry* Not available 06/12/2024 14:33:13 Reason for Referral Orthopedic Surgeon Referral for Pain of right ankle joint 1 year of right ankle pain after a sprain Referring Physician: Tiarra Gaona, Internal Medicine, Encounter Date: 01/04/2022 Learning Facilitator Referral for Screening for malignant neoplasm of colon due for 5 year check, father had colon cancer Referring Physician: Tiarra Gaona, Internal Medicine, Encounter Date: 01/04/2022 Results Created Date Observation Date Name Description Value Unit Range Abnormal Flag Note LastModifiedBy Organization Detail LastModifiedTime 01/06/2001/05/2023 pulse oxime try* Result 99 Not Available [facility] [address] [place] [address] D, [place], [address], 01/01/2023 08:29:06 06/12/19 25 06/12/2024 pulse oxime try* Result 98% RA Not Available [facility] [address] [facility] [address], [place], [address], 06/11/2024 11:53:19 09/16/19 24 09/16/2023 XR, hip, unila teral , 2 or 3 view No observ ation record ed. [email or web address] [facility] [address] [facility] [address], [place], [address], 09/20/2023 08:49:27 11/01/19 24 11/01/2023 injec tion for hip arthr ograp hy (PROC ) No observ ation record ed. [email or web address] [facility] (Medical Records) [address] [place], [address], 11/02/2023 11:26:44 07/14/19 25 07/13/2024 US, liver No observ ation record ed. [email or web address] [address], [place], [address], 07/16/2024 11:01:57 Result Notes None recorded. Problems Name Problem SNOMED Code Status Onset Date Resolution Date Notes Provider Name and Address Organization Details Recorded Time Impaired fasting glycemia 041547575 Active 2019 JUAN C Robins [address] [place], [address], [place] [facility] 0 09:16:32 Pain of right ankle joint 36916085725 946360 Active 2021 SENDY LEHMAN [address] [place], [address], [place] [facility] 2 09:07:03 Pain of right hip joint 53126708766 9102 Active 2022 SENDY LEHMAN [address] [place] [address], [address], [place] [facility] 3 09:10:48 Pain of shoulder region 40989402 Active 2023 SENDY LEHMAN [address] [place], [address], [facility] 4 10:48:55 Lateral epicondy litis of right humerus 04539447786 9107 Active 2023 Bautista Hair, [address] [place] [address], [address], [facility] 4 14:27:52 Pneumoni tis 939823820 Active 2024 Bautista Hair DO [address] [place] [address], [address], [facility] 5 13:46:05 Liver function tests outside referenc e range 439738708 Active 2024 Bautista Hair DO [address] [place] [address], [address], [facility] 5 23:13:06 Essentia l hyperten rajiv 17673547 Active 2017 Nicole boswell [facility] 8 15:48:49 Asthma 496687932 [facility] 2017 [facility] 15:48:57 Impaired fasting glycemia 893072886 Completed 201706/16/2018August JUAN C Robins [address] [place] [address], [address], [facility] 0 09:16:32 History of depressi on 154140103 Active 2017 Nicole boswell [facility] 8 15:49:10 Anxiety 60550328 Active 2017 Nicole boswell [facility] 8 15:49:16 Spermato basim 12419496 Active 2017 Nicole boswell [facility] 8 15:49:24 Problem Notes None recorded. Procedures Surgical History Date Name Laterality Status Provider Name and Address Organization Details Recorded Time 024 Corticosteroid Injection completed Bautista Hair DO [address] [place], [place] [address], [place], [address], [place] [facility] 05/31/2023 14:26:27 021 extraction of wisdom tooth completed SENDY LEHMAN [address] [facility], [place], [address], [place] [facility] 12/29/2020 09:06:37 Imaging Results Imaging Date Name Status LastModified by Organization Details LastModified Time 09/16/2023 XR, hip, unilateral, 2 or 3 view completed [email or web address] [facility] [address] [facility] [address], [place], [address], 09/20/2023 08:49:27 11/01/2023 injection for hip arthrography (PROC) completed [email or web address] [place] [address] (Medical Records) [address] [place], [address], 11/02/2023 11:26:44 07/13/2024 US, liver completed [email or web address] [address], [place], [address], 07/16/2024 11:01:57 Procedure Notes None recorded. Medical Equipment None [...] n 250 mg tablet TAKE 2 TABLETS BY MOUTH TODAY, THEN TAKE 1 TABLET DAILY FOR 4 DAYS DIRECTED active Not Available Not Available No t Available hydrocodone 5 mg-acetamin ophen 325 mg tablet [...] Available Not Available Not Available Afluria Qd (36 mos up)(PF)60 mcg (15 mcg x4)/0.5 mL IM syringe 12/29 completed Not Available Not Available Not Available Afluria Qd (36 mos up)(PF)60 mcg (15 mcg x4)/0.5 [...] Updated DateTime 2 169.55 cm 32.4 kg/m2 32648.8 7 g 97 % 97 % 83 /min 130 mm[Hg] 84 mm[Hg] Yohana Og [facility] 2 08:59:18 Date Recorded Body height Body mass index (BMI) Body weight Heart rate Oxygen saturation Oxygen saturation in Arterial blood by Pulse oximetry Systolic blood pressure Diastolic blood pressure Provider Name and Address Organization Details Last Updated DateTime 3 167.64 cm 34.2 kg/m2 19413.5 8 g 79 /min 97 % 97 % 140 mm[Hg] 80 mm[Hg] Debra Good [facility] 3 09:04:19 Date Recorded Body height Body mass index (BMI) Body weight Heart rate Oxygen saturation Oxygen saturation in Arterial blood by Pulse oximetry Systolic blood pressure Diastolic blood pressure Provider Name and Address Organization Details Last Updated DateTime 5 170.18 cm 33.8 kg/m2 38494.9 5 g 86 /min 98 % 98 % 138 mm[Hg] 86 mm[Hg] Geo Stewart [facility] 5 13:57:23 Social History Question Answer Notes LastModified by Organizat ion Details LastModified Time Tobacco Smoking Status Never Smoker Not Available [facility] 03/11/2020 03:36:23 What Was The Date Of Your Most Recent Tobacco Screening? 06/12/2024 [email or web address] Information not available 06/12/2024 Sex: Unknown Functional Status Question Answer Note LastModified by Organization D etails LastModified Time Do you or have you ever used any other forms of tobacco or nicotine? No [email or web address] Information not available 05/31/2023 Mental Status None recorded. Family History Relationship [...] N Breast Cancer N Blood Transfusion N COPD N Depression N Lung Disease [...] 50 mcg/0.25mL dose 1 completed Bee boswell [facility] 05/31/2023 14:00:58 COVID-19, mRNA, LNP-S, PF, 100 mcg/0.5mL dose or 50 mcg/0.25mL dose 1 completed Bee boswell [facility] 05/31/2023 14:00:58 Influenza, split virus, quadrivalent, preservative 0 completed Bee boswell [facility] 05/31/2023 14:00:58 zoster recombinant 0 completed Bee boswell [facility] 05/31/2023 14:00:58 COVID-19, mRNA, LNP-S, PF, 100 mcg/0.5mL dose or 50 mcg/0.25mL dose 1 completed Bee boswell [facility] 05/31/2023 14:00:58 Influenza, split virus, quadrivalent, preservative 9 completed Bee boswell [facility] 05/31/2023 14:00:58 Tdap 9 completed Tameka JUAN C Robins [address] [place] [address], [address], [place] [facility] 06/26/2019 12:38:56 Past Encounters Encounter ID Performer Location Encounter Start Date Encounter Closed Date Diagnosis/Indication Diagnosis SNOMED-CT Code Diagnosis ICD10 Code Diagnosis Note [id number] Bautista Hair [address],[place] [address] 12/16/2017 10:42:49 12/16/2017 11:27:42 Adult health examination 663550793 Z00.01 just had prostate checked with urologist Active or passive immunization 609555902 Z23 Essential hypertension 00698714 I10 Asthma 875309367 J45.90 9 [id number] Bautista Hair [address],[place] [address] 06/16/2018 11:31:30 06/16/2018 12:07:15 Asthma 870945402 J45.909 Essential hypertension 02303066 I10 stable, reviewed labs History of depression 16 8270522 Z86.59 controlled [id number],[place] [address] 12/22/2018 11:37:03 12/22/2018 12:09:50 History of depression 553033178 Z86.59 ok Asthma 891904106 J45.90 9 stable rare use of pro air Anxiety 97853463 F41.9 ok Essential hypertension 30511366 I10 stable Active or passive immunization 483410330 Z23 [id number] Bautista Sandersonjesús [address],[place] [address] 06/26/2019 11:15:38 06/26/2019 14:41:08 Adult health examination 132671068 Z00.00 no prostate issues no family h/o prostate cancer had seen urology in the past and only finding was a spermatoce thea padilla check chart for urology report Active or passive immunization 450425245 Z23 Actinic keratosis 578886 007 L57.0 Asthma 981529031 J45.90 9 stable on daily wixela rare use of pro air Essential hypertension 94890112 I10 stable Impaired f asting glycemia 489415300 R73.01 reviewed labs discussed diet and exercise and weight loss Body mass index 30+ - obesity 568047081 Z68.35 as stated above [id number] Bautista Hair DO [facility] [address] [facility],[place] [address] 12/26/2019 11:39:08 12/26/2019 12:13:32 History of depression 978862634 Z86.59 stable Asthma 029904649 J45.90 9 stable on medication s Anxiety 39067743 F41.9 stable Essential hypertension 33158318 I10 BP is higher today was stressed at work will continue to monitor it Active or passive immunization 183028060 Z23 will get shingrix shot and flu shot at the pharmacy [id number] Bautista Hair DO [facility] [address] [facility],[place] [address] 12/29/2020 08:45:31 12/29/2020 09:25:23 Active or passive immunization 835893267 Z23 will get shingrix shot and flu shot at the pharmacy Adult heal th examination 010624577 Z00.00 recheck BW Asthma 833217576 J45.90 9 stable on medication s Essential hypertension 77200165 I10 BP is higher today was stressed at worktends to be higher when he first gets to the office will continue to monitor it Anxiety 89620397 F41.1 stable on sertraline wants to taper offwill cut 50 mg and half and call for 25 mg and cut those in half [id number] SENDY LEHMAN [facility] [address] [facility],[place] [address] 01/04/2022 08:49:27 01/04/2022 09:23:37 Active or passive immunization 468322381 Z23 will get shingrix shot and flu shot at the pharmacy Adult heal th examination 988442562 Z00.00 recheck BW Essential hypertension 41350121 I10 stable Pain of ri ght ankle joint 7654271568 7502220 M25.571 will fu with ortho referral Screening for malignant neoplasm of colon 642112385 Z12.11 will fu with screening [id number] Bautista Hair DO [facility] [address] [facility],[place] [address] 01/05/2023 08:57:18 01/05/2023 16:47:55 Active or passive immunization 209710995 Z23 will get shingrix shot and flu shot at the pharmacy [facility] 501292458 Z00.00 recheck BW Anxiety 51685542 F41.1 stable on sertraline wants to taper offwill cut 50 mg and half and call for 25 mg and cut those in half Essential hypertension 17297942 I10 stable Impaired f asting glycemia 876099313 R73.01 will set up with lab work Asthma 085631704 J45.20 stable on medication s Pain of ri ght hip joint 9587813287 63189 M25.551 will set up with XR hip [id number] Bautista Hair [facility] [address] [facility],[place] [address] 05/31/2023 13:58:12 05/31/2023 14:23:37 Pain of shoulder region 17543338 M25.511 has noted rotator tendinitis or labral arthritis cont celecoxib for 2 dayscort inj well lance Lateral ep icondylitis of right humerus 7442956180 14861 M77.11 conserv tx with band and nsaid [id number] Bautista Hair [facility] [address] [facility],[place] [address] 06/12/2024 13:50:34 06/12/2024 14:55:42 Active or passive immunization 750873464 Z23 utd [facility] 365516557 Z00.00 doing well no issues Essential hypertension 33397519 I10 stable Asthma 224369282 J45.20 no issues rare use of albut [id number] Bautista Hair [facility] [address] [facility],[place] [address] 06/29/2024 09:24:24 06/29/2024 14:11:47 Pneumonitis 970893012 J18.9 Health Concerns Section Related Observation LastModified by Organization Detai ls LastModified Time None Recorded Concern Status LastModified by Organization Details LastModified Time None Recorded Advance Directives Directive None Recorded Payers Encounter Date Sequence Insurance Name Policy Number Policy Benson Covered Member ID Benson Member ID Guarantor Name 01/04/2022 1 [employer] [place] [id number] Modesto Vieira [id number] Modesto Vieira 01/05/2023 1 [facility] [id number] Modesto Vieira [id number] Modesto Vieira 05/31/2023 1 [facility] [id number] Modesto Vieira [id number] Modesto Vieira 06/12/2024 1 [place] [id number] Modesto Vieira [id number] Modesto Vieira 06/29/2024 1 [facility] [id number] Modesto Vieira [id number] Modesto Vieira Notes Date Note Type Note Provider Name a me Address Organization Details Recorded Time 2 text/html [...] which has been for years SENDY LEHMAN [address] [place], [address], [facility] 01/04/2022 09:20:25 3 [...] sob, ankle swelling, orthopnea, palpitations SENDY LEHMAN [address] [place] [address], [address], [facility] 01/05/2023 09:32:59 4 text/html here for chk of his right shoulderrelates has gotten severe pain 3 weeks agoaching throbbing pain worse with moving upward Bautista Hair DO [address] [place], [address], [facility] 05/31/2023 14:28:17 5 text/html Annual [...] the cor t inj was very Bautista Hair DO [address] [facility], [place], [address], [facility] 06/12/2024 14:34:42 5 text/html patient is evaluated via tele/video assessment per patient consentduring current pandemic I think i might have come down with the Flu this week. I will call a little later but wanted to outline the issues i had this week.Tuesday sneezing started and at night coughing.?da y coughing got worse, Breathing Out had [...] cough up anything, just a little.? Bautista Hair DO [address] [facility], [place], [address], [facility] 06/29/2024 13:48:08
[2024-09-17 07:43] LABS: Alanine Aminotransferase 30 U/L (0-40); Albumin Level 4.4 g/dL (3.5-5.0); Aspartate Amino Transferase 24 U/L (5-37); Bilirubin Direct 0.2 mg/dL (0.0-0.5); Bilirubin Total 0.6 mg/dL (0.0-1.0); Total Protein 7.2 g/dL (6.5-8.0)
[2024-09-17 08:00] LABS: Alkaline Phosphatase 66 U/L (39-117)
== END 2024-09-17 06:53 | disposition home or self-care (01) ==
LOC: HO.LAB 06:52
PROVIDERS: PCP Internal Medicine; Visit Provider Internal Medicine
DX: R94.5 Abnormal results of liver function studies (principal)
CPT/HCPCS: 36415; 80076